=== PATIENT | male | born 1960 | race Caucasian/White ===

== ENCOUNTER 2022-05-15 11:39 | Emergency (ER) | payer OTHER ==
[~2022-05-15] VITALS: Ht 175.3 cm; Wt 107.0 kg
[2022-05-15 11:53] VITALS: BP 160/68
--- NOTE | 2022-05-15 12:05 | NUR ---
pt ambulated to bed 10 with steady gait
--- NOTE | 2022-05-15 12:14 | NUR ---
dr nunez at bedside for eval
--- NOTE | 2022-05-15 12:15 | NUR ---
62YO MALE C/O DIZZINESS AND WEAKNESS X3 DAYS. PT STATES HE HAD ABNORMAL EKG AND HTN AND TOLD BY PCP TO COME TO ER ON SUNDAY . PT AMBULATORY W/ STEADY GAIT AND DENIES DIZZINESS AT THIS TIME. PT NOTES HES MORE" TIRED AND WEAK" ALONG WITH SOB . PRESENTS WITH INFECTION OUTER PART OF R TOE AND ON L ANKLE , NO DRAINAGE NOTED . PT STATES FINISHING RX ANTIBIOTICS GIVEN, FOR DX CELLULITIS ,BY PCP AND HAS PAIN WHEN BEARING WEIGHT.REPORTS SLIGHT NUMBING IN R FOOT , DENIES LOSS OF SENSATION. DENIES N/V/D OR CHEST PAIN AT THIS TIME. 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 PT AAOX4, SKIN WARM TO TOUCH, RESPIRATIONS EVEN AND UNLABORED. 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 HX: DIABETES 2, BIPOLAR, ASTHMA , NKA
--- NOTE | 2022-05-15 12:21 | NUR ---
pt encouraged to give urine sample. "not right now"
--- NOTE | 2022-05-15 12:41 | NUR ---
LAB AT BEDSIDE
--- NOTE | 2022-05-15 12:44 | NUR ---
XRAY AT BEDSIDE
[2022-05-15 12:45] LABS: BASOPHILS # (AUTO) 0.1 K/uL (0.00-0.22); BASOPHILS % (AUTO) 0.7 % (0.0-2.0); EOSINOPHILS # (AUTO) 0.5 K/uL (0-0.4); EOSINOPHILS % (AUTO) 4.9 % (0.0-4.0); HEMATOCRIT 42.3 % (36-52); HEMOGLOBIN 14.5 g/dL (12.0-18.0); LYMPHOCYTES # (AUTO) 2.2 K/uL (2.0-11.5); LYMPHOCYTES % (AUTO) 20.7 % (20.5-51.1); MEAN CORPUSCULAR HEMOGLOBIN 32 pg (27-31); MEAN CORPUSCULAR HGB CONC 34 g/dL (33-37); MEAN CORPUSCULAR VOLUME 92.7 fL (80-94); MONOCYTES # (AUTO) 0.8 K/uL (0.8-1.0); MONOCYTES % (AUTO) 7.3 % (1.7-9.3); NEUTROPHILS % (AUTO) 66.4 % (42.2-75.2); PLATELET COUNT (AUTO) 222 K/uL (140-450); RED BLOOD CELL COUNT(AUTO) 4.57 MIL/uL (4.20-6.10); RED CELL DISTRIBUTION WIDTH 12.3 % (11.6-13.7); WHITE BLOOD COUNT (AUTO) 10.6 K/uL (4.8-10.8)
[2022-05-15 13:06] LABS: ALBUMIN 3.6 g/dL (3.4-5.0); ANION GAP 17.5 (8-16); CREATININE 1.2 mg/dL (0.6-1.3); POTASSIUM 3.5 mmol/L (3.5-5.1); TOTAL BILIRUBIN 0.3 mg/dL (0.0-1.0)
[2022-05-15 13:11] LABS: THYROID STIMULATING HORMONE 1.88 uIU/mL (0.34-3.74)
--- NOTE | 2022-05-15 13:47 | NUR ---
pt re encouraged to give urine sample . urinal left at bedside
--- NOTE | 2022-05-15 13:48 | NUR ---
PT SWABBED FOR COVID(ILDEFONSO) AND FLU. HANDED TO MORTARMAN
--- NOTE | 2022-05-15 14:05 | NUR ---
LAB AT BEDSIDE
[2022-05-15] MEDS ORDERED: CEPH-588 PO (14:14)
--- NOTE | 2022-05-15 15:39 | NUR ---
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
[2022-05-15 16:40] VITALS: BP 127/82
--- NOTE | 2022-05-15 16:40 | NUR ---
Patient discharged with v/s stable. Written and verbal after care instructions FOR UPPER RESPIRATORY INFECTION , PREMATURE VENTICULAR CONTRACTION AND CELLULITS given and explained. Patient alert, oriented and verbalized understanding of instructions. Ambulatory with steady gait. All questions addressed prior to discharge. ID band removed. Patient advised to follow up with PMD. Rx of KEFLEX given. Opportunity to ask questions provided and answered. CD COPY OF XRAY PROVIDED
[2022-05-15 16:59] LABS: APPEARANCE,URINE CLEAR (CLEAR); BILIRUBIN,URINE NEGATIVE (NEGATIVE); BLOOD, URINE NEGATIVE (NEGATIVE); COLOR,URINE YELLOW (YELLOW); LEUKOCYTE ESTERASE ,URINE NEGATIVE (NEGATIVE); NITRITE, URINE NEGATIVE (NEGATIVE); UGLUCOSE 3+ (NEGATIVE)
--- NOTE | 2022-05-15 17:03 | NUR ---
The patient's care was reviewed and supervised by Love Sheikh, RN, RN.
== END 2022-05-15 16:40 | disposition home or self-care (01) ==
LOC: MED 11:39
DX: L03.115 Cellulitis of right lower limb (principal); Z20.822 Contact with and (suspected) exposure to COVID-19; I49.3 Ventricular premature depolarization; J45.909 Unspecified asthma, uncomplicated; E11.9 Type 2 diabetes mellitus without complications; R05.9 Cough, unspecified; Z79.4 Long term (current) use of insulin; Z79.899 Other long term (current) drug therapy
CPT/HCPCS: 36415; 71045; 73660; 80053; 81003; 83880; 84443; 84484; 85025; 87426; 87804; 93005; 99285; Q0092